=== PATIENT | female | born 1980 | race Caucasian/White ===

== ENCOUNTER 2018-05-04 14:56 | Emergency (ER) | END 2018-05-04 17:33 | disposition left against medical advice (07) ==

== ENCOUNTER 2018-05-23 10:37 | Emergency (ER) | END 2018-05-23 19:13 | disposition home or self-care (01) ==

== ENCOUNTER 2018-11-19 16:23 | Emergency (ER) | payer SELFPAY ==
[~2018-11-19] VITALS: Ht 157.5 cm; Wt 58.2 kg
[~2018-11-19 16:23] MED LIST: CIPR500T4 PO
[2018-11-19 16:56] VITALS: BP 138/87; PULSE 114; RESP 18; Ht 157.5 cm; Wt 58.2 kg
== END 2018-11-19 17:51 | disposition left against medical advice (07) ==
LOC: E/R 16:23
DX: Z53.21 Procedure and treatment not carried out due to patient leaving prior to being seen by health care provider (principal)

== ENCOUNTER 2018-12-07 08:25 | Emergency (ER) | payer OTHER ==
[~2018-12-07] VITALS: Wt 61.3 kg
--- NOTE | 2018-12-07 09:27 | ERD ---
ER Documentation Chief Complaint Chief Complaint suicidal attempt with approx 20 pills of kepra 1000mg stated, etoh positive HPI 38-year-old female history of seizure disorder on Keppra, underlying psychiatric issues and depression who presents to the emergency room complaining of suicidal ideation. The patient states that she took approximately 20 pills of her Keppra possibly at thousand milligrams tablets yesterday evening. She states that she took these medications trying to kill herself. Patient has suicidal ideation. She states that she has been drinking alcohol. She denies any other coingestions. She denies any chest pain shortness of breath. Police officers are placing the patient on hold ROS All systems reviewed and are negative except as per history of present illness. Medications Home Meds Reported Medications Sertraline Hcl* (Sertraline Hcl*) 50 Mg Tablet, 50 MG PO DAILY, #30 TAB 12/07/18 Levetiracetam* (Levetiracetam*) 1,000 Mg Tablet, 1000 MG PO BID, TAB 12/07/18 Discontinued Scripts Ciprofloxacin Hcl* (Ciprofloxacin Hcl*) 500 Mg Tablet, 500 MG PO BID for 7 Days, TAB Prov:BEBE YOU MD 05/23/18 Allergies Allergies: Coded Allergies: No Known Allergy (Unverified , 12/07/18) PMhx/Soc History of Surgery: No Anesthesia Reaction: No Hx Neurological Disorder: Yes (SEIZURE) Hx Respiratory Disorders: No Hx Cardiac Disorders: No Hx Psychiatric Problems: No (DENIES) Hx Miscellaneous Medical Probl: No Hx Alcohol Use: Yes Hx Substance Use: No Hx Tobacco Use: Yes Smoking Status: Current some day smoker FmHx Family History: No diabetes Physical Exam Vitals Vital Signs Date Temp Pulse Resp B/P (MAP) Pulse Ox O2 O2 Flow FiO2 Time Delivery Rate 12/07/18 102 17 105/73 100 Room Air 11:39 (84) 12/07/18 98.5 112 20 132/78 98 08:36 (96) Physical Exam General: Agitated, tearful, slightly intoxicated but directable Head: Normocephalic, atraumatic. Eyes: Pupils equally reactive, EOM intact ENT: Moist mucous membranes Neck: Supple, no lymphadenopathy Respiratory: Lungs clear bilaterally, no distress Cardiovascular: RRR, no murmurs, rubs, or gallops Abdominal: Soft, non-tender, non-distended, no peritoneal signs : Deferred MSK: No edema, no unilateral swelling, 5/5 strength Neurologic: Limited exam, intoxicated but moving all extremities Skin: No rash Psych: Suicidal ideation with plan Result Diagram: 12/07/1837 12/07/18 0837 Results 24 hrs Laboratory Tests Test 12/07/18 08:37 12/07/18 08:40 White Blood Count 6.9 10^3/ul Red Blood Count 4.30 10^6/ul Hemoglobin 13.6 g/dl Hematocrit 39.7 % Mean Corpuscular Volume 92.3 fl Mean Corpuscular Hemoglobin 31.6 pg Mean Corpuscular Hemoglobin Concent 34.3 g/dl Red Cell Distribution Width 12.9 % Platelet Count 250 10^3/UL Mean Platelet Volume 9.8 fl Immature Granulocytes % 0.300 % Neutrophils % 51.5 % Lymphocytes % 34.5 % Monocytes % 11.6 % Eosinophils % 1.2 % Basophils % 0.9 % Nucleated Red Blood Cells % 0.0 /100WBC Immature Granulocytes # 0.020 10^3/ul Neutrophils # 3.6 10^3/ul Lymphocytes # 2.4 10^3/ul Monocytes # 0.8 10^3/ul Eosinophils # 0.1 10^3/ul Basophils # 0.1 10^3/ul Nucleated Red Blood Cells # 0.0 10^3/ul Sodium Level 144 mmol/L Potassium Level 4.7 mmol/L Chloride Level 107 mmol/L Carbon Dioxide Level 26 mmol/L Anion Gap 11 Blood Urea Nitrogen 5 mg/dl Creatinine 0.68 mg/dl Est Glomerular Filtrat Rate mL/min > 60 mL/min Glucose Level 110 mg/dl Calcium Level 9.2 mg/dl Total Bilirubin 0.4 mg/dl Direct Bilirubin 0.00 mg/dl Indirect Bilirubin 0.4 mg/dl Aspartate Amino Transf (AST/SGOT) 34 IU/L Alanine Aminotransferase (ALT/SGPT) 17 IU/L Alkaline Phosphatase 52 IU/L Total Protein 8.1 g/dl Albumin 4.5 g/dl Globulin 3.60 g/dl Albumin/Globulin Ratio 1.25 Serum HCG, Qualitative NEGATIVE Salicylates Level < 1.0 mg/dl Acetaminophen Level < 10.0 ug/ml Ethyl Alcohol Level 269.0 mg/dl Urine Color STRAW Urine Clarity CLEAR Urine pH 6.0 Urine Specific [place] 1.010 Urine Ketones NEGATIVE mg/dL Urine Nitrite NEGATIVE mg/dL Urine Bilirubin NEGATIVE mg/dL Urine Urobilinogen NEGATIVE mg/dL Urine Leukocyte Esterase NEGATIVE Gwyn/ul Urine Hemoglobin NEGATIVE mg/dL Urine Glucose NEGATIVE mg/dL Urine Total Protein NEGATIVE mg/dl Urine Opiates Screen Negative Urine Barbiturates Negative Urine Amphetamines Screen Negative Urine Benzodiazepines Screen Negative Urine Cocaine Screen Negative Urine Cannabinoids Negative Procedures/MDM EKG, MONITORS, & DIAGNOSTIC IMAGING: EKG: I reviewed and interpreted a 12-lead EKG. Rhythm: Normal sinus rhythm ST Changes: No contiguous ST segment elevations T waves: No contiguous T wave inversions Impression: No evidence of acute cardiac ischemia LAB INTERPRETATION: I reviewed the laboratory testing and it shows elevated alcohol level MEDICAL DECISION MAKING: Patient presents with reported ingestion of 20 tablets of Keppra yesterday evening. Greater than 1 hour since ingestion. The patient has no signs or symptoms concerning for toxidrome. Patient is being placed on a 5150 hold by police officers for suicidal ideation and danger to self. Poison Control Center was notified. They recommend observation for 6 hours status post ingestion. The patient is now greater than 6 hours status post ingestion. Other laboratory testing will be initiated to rule out coingestions but low clinical concern for that process. Patient does not require physical or chemical restraints at this time. She has been given a verbal warning and has been redirected. Patient will need evaluation by psychiatric team. ER COURSE: * Alcohol level is elevated. The patient is resting comfortably. * At this point the patient is medically cleared for psychiatric evaluation and placement CONSULTATION: None DISPOSITION PLAN: Pending psychiatric evaluation and placement Patient will be endorsed oncoming provider. Departure Diagnosis: Primary Impression: Suicidal ideation Additional Impressions: Intentional drug overdose Encounter type: initial encounter Qualified Codes: T50.902A - Poisoning by unspecified drugs, medicaments and biological substances, intentional self- harm, initial encounter Acute alcohol intoxication Complication of substance-induced condition: uncomplicated Qualified Codes: F10.920 - Alcohol use, unspecified with intoxication, uncomplicated Condition: Stable DANI CORNEJO MD Dec 07, 2018 09:27
[2018-12-07] MEDS ORDERED: LEVE10006 PO (10:31)
[2018-12-07] MEDS ORDERED: SERT50TA6 PO (10:31)
--- NOTE | 2018-12-07 14:23 | PSY ---
Date/Time of Note Date/Time of Note DATE: 12/07/18 TIME: 14:20 Psychiatric Subjective Eval Consent Pt consented to telemedicine: Yes Subjective Evaluation Patient location: emergency Chief Complaint: suicidal attempt with approx 20 pills of kepra 1000mg stated, etoh positive History of present illness 38 yo female s/p intentional OD on Keppra 20 + pills in a SA. Pt was intoxicated on alcohol, BAL 69. Pt is uncooperative with the eval, initially refused to speak, agitated, pressured speech. She says she was suicidal because she does not have custody of her 4 kids and she has been trying to get . She is paranoid, irritable, she denies AH or VH. Refused to discuss her past psych hx. Past psychiatric history refused to answer Hospitalization: yes Medical history Problems Medical Problems: (1) Acute alcohol intoxication Status: Acute (2) Alcoholic intoxication Status: Acute (3) Dog bite Status: Acute (4) Intentional drug overdose Status: Acute (5) Laceration of vermilion border of upper lip Status: Acute (6) Patient left after triage Status: Acute (7) Suicidal ideation Status: Acute (8) Urinary tract infection Status: Acute Allergies: Coded Allergies: No Known Allergy (Unverified , 12/07/18) Substance Abuse Substance abuse history: Yes Prior substance abuse treatmen: Yes Social History Marital status: single Occupation/Halfway: unemployed disabled Psychiatric Objective Eval Review of Systems: Review of Systems: Not Applicable Physical Examination: Physical Examination: Not Applicable Mental Status Examination: Appearance: Disheveled Eye Contact: Fair Psychomotor Activity: Agitated Behavior: Hostile Speech: Pressured AFFECT: Libile Mood: Angry Though Process: Circumstantial Suicidal: Yes Homicidal: No On 72 hour hold: Yes Orientation: x3 Cognition: Alert Insight: Impared Judgement: Impared Laboratory Results Laboratory Tests Test 12/07/18 08:37 12/07/18 08:40 White Blood Count 6.9 10^3/ul Red Blood Count 4.30 10^6/ul Hemoglobin 13.6 g/dl Hematocrit 39.7 % Mean Corpuscular Volume 92.3 fl Mean Corpuscular Hemoglobin 31.6 pg Mean Corpuscular Hemoglobin Concent 34.3 g/dl Red Cell Distribution Width 12.9 % Platelet Count 250 10^3/UL Mean Platelet Volume 9.8 fl Immature Granulocytes % 0.300 % Neutrophils % 51.5 % Lymphocytes % 34.5 % Monocytes % 11.6 % Eosinophils % 1.2 % Basophils % 0.9 % Nucleated Red Blood Cells % 0.0 /100WBC Immature Granulocytes # 0.020 10^3/ul Neutrophils # 3.6 10^3/ul Lymphocytes # 2.4 10^3/ul Monocytes # 0.8 10^3/ul Eosinophils # 0.1 10^3/ul Basophils # 0.1 10^3/ul Nucleated Red Blood Cells # 0.0 10^3/ul Sodium Level 144 mmol/L Potassium Level 4.7 mmol/L Chloride Level 107 mmol/L Carbon Dioxide Level 26 mmol/L Anion Gap 11 Blood Urea Nitrogen 5 mg/dl Creatinine 0.68 mg/dl Est Glomerular Filtrat Rate mL/min > 60 mL/min Glucose Level 110 mg/dl Calcium Level 9.2 mg/dl Total Bilirubin 0.4 mg/dl Direct Bilirubin 0.00 mg/dl Indirect Bilirubin 0.4 mg/dl Aspartate Amino Transf (AST/SGOT) 34 IU/L Alanine Aminotransferase (ALT/SGPT) 17 IU/L Alkaline Phosphatase 52 IU/L Total Protein 8.1 g/dl Albumin 4.5 g/dl Globulin 3.60 g/dl Albumin/Globulin Ratio 1.25 Serum HCG, Qualitative NEGATIVE Salicylates Level < 1.0 mg/dl Acetaminophen Level < 10.0 ug/ml Ethyl Alcohol Level 269.0 mg/dl Urine Color STRAW Urine Clarity CLEAR Urine pH 6.0 Urine Specific [place] 1.010 Urine Ketones NEGATIVE mg/dL Urine Nitrite NEGATIVE mg/dL Urine Bilirubin NEGATIVE mg/dL Urine Urobilinogen NEGATIVE mg/dL Urine Leukocyte Esterase NEGATIVE Gwyn/ul Urine Hemoglobin NEGATIVE mg/dL Urine Glucose NEGATIVE mg/dL Urine Total Protein NEGATIVE mg/dl Urine Opiates Screen Negative Urine Barbiturates Negative Urine Amphetamines Screen Negative Urine Benzodiazepines Screen Negative Urine Cocaine Screen Negative Urine Cannabinoids Negative Assessment and Plan Assessment/Diagnosis Diagnosis ALCOHOL USE DISORDER. UNSPECIFIED MOOD DISORDER. Recommendation/Plan Medication Management ZYPREXA 10 MG PO QHS AND 5 MG POQAM. CIWA PROTOCOL Multiple antipsychotics: Yes Discharge Disposition: Psychiatric inpatient Legal Status: Continue involuntary hold FENG SLATER MD Dec 07, 2018 14:23
--- NOTE | 2018-12-07 19:25 | PSY ---
Date/Time of Note Date/Time of Note DATE: 12/07/18 TIME: 19:10 Psychiatric Subjective Eval Subjective Evaluation Patient location: emergency Chief Complaint: suicidal attempt with approx 20 pills of kepra 1000mg stated, etoh positive Reason for consult: OD History of present illness Patient already seen by Dr. Strange ~4 hours ago who felt patient was at sufficient risk to maintain on 5150 hold and psychiatrically admitted. Hospital staff state patient wanted another evaluation because she wanted to go home and wasn't suicidal. She stated she was "drunk and not in my right mind" and did not remember even talking to any police officers. She is frustrated with her family and stated they are not supportive and are "toxic" and only "point fingers" at her. She stated she was drunk and again "not in my right mind" and did not remember taking an overdose but then stated she did remember taking them because she was upset and would have thrown them up if she hadn't called for help. She stated now that she's sober she wants to take a shower and go to AA and stated she does not want to . Past psychiatric history No past MH history. No past admissions. Hospitalization: Suicidal Attempt(s) (Prior suicide when she was 14 "because a boy called me fat.") Family History None known Medical history Problems Medical Problems: (1) Acute alcohol intoxication Status: Acute (2) Alcoholic intoxication Status: Acute (3) Dog bite Status: Acute (4) Intentional drug overdose Status: Acute (5) Laceration of vermilion border of upper lip Status: Acute (6) Patient left after triage Status: Acute (7) Suicidal ideation Status: Acute (8) Urinary tract infection Status: Acute Allergies: Coded Allergies: No Known Allergy (Unverified , 12/07/18) Substance Abuse Substance abuse history: Yes Social History Marital status: single Level of education: Graduated HS, trained as APARTMENT MANAGER DPA/Conservatorship: No 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 Psychiatric Objective Eval Mental Status Examination: Appearance: Groomed Eye Contact: Fair Psychomotor Activity: Normal Behavior: Cooperative Speech: Clear AFFECT: Other (Tearful) Mood: Depressed Though Process: Linear Thought Content: Normal Suicidal: No Homicidal: No On 72 hour hold: Yes Orientation: x4 Laboratory Results Laboratory Tests Test 12/07/18 08:37 12/07/18 08:40 12/07/18 17:23 White Blood Count 6.9 10^3/ul Red Blood Count 4.30 10^6/ul Hemoglobin 13.6 g/dl Hematocrit 39.7 % Mean Corpuscular Volume 92.3 fl Mean Corpuscular Hemoglobin 31.6 pg Mean Corpuscular 34.3 g/dl Hemoglobin Concent Red Cell Distribution Width 12.9 % Platelet Count 250 10^3/UL Mean Platelet Volume 9.8 fl Immature Granulocytes % 0.300 % Neutrophils % 51.5 % Lymphocytes % 34.5 % Monocytes % 11.6 % Eosinophils % 1.2 % Basophils % 0.9 % Nucleated Red Blood Cells % 0.0 /100WBC Immature Granulocytes # 0.020 10^3/ul Neutrophils # 3.6 10^3/ul Lymphocytes # 2.4 10^3/ul Monocytes # 0.8 10^3/ul Eosinophils # 0.1 10^3/ul Basophils # 0.1 10^3/ul Nucleated Red Blood Cells # 0.0 10^3/ul Sodium Level 144 mmol/L Potassium Level 4.7 mmol/L Chloride Level 107 mmol/L Carbon Dioxide Level 26 mmol/L Anion Gap 11 Blood Urea Nitrogen 5 mg/dl Creatinine 0.68 mg/dl Est Glomerular Filtrat > 60 mL/min Rate mL/min Glucose Level 110 mg/dl Calcium Level 9.2 mg/dl Total Bilirubin 0.4 mg/dl Direct Bilirubin 0.00 mg/dl Indirect Bilirubin 0.4 mg/dl Aspartate Amino 34 IU/L Transf (AST/SGOT) Alanine 17 IU/L Aminotransferase (ALT/SGPT) Alkaline Phosphatase 52 IU/L Total Protein 8.1 g/dl Albumin 4.5 g/dl Globulin 3.60 g/dl Albumin/Globulin Ratio 1.25 Serum HCG, Qualitative NEGATIVE Salicylates Level < 1.0 mg/dl Acetaminophen Level < 10.0 ug/ml Ethyl Alcohol Level 269.0 mg/dl 30.0 mg/dl Urine Color STRAW Urine Clarity CLEAR Urine pH 6.0 Urine Specific [place] 1.010 Urine Ketones NEGATIVE mg/dL Urine Nitrite NEGATIVE mg/dL Urine Bilirubin NEGATIVE mg/dL Urine Urobilinogen NEGATIVE mg/dL Urine Leukocyte Esterase NEGATIVE Gwyn/ul Urine Hemoglobin NEGATIVE mg/dL Urine Glucose NEGATIVE mg/dL Urine Total Protein NEGATIVE mg/dl Urine Opiates Screen Negative Urine Barbiturates Negative Urine Amphetamines Screen Negative Urine Benzodiazepines Screen Negative Urine Cocaine Screen Negative Urine Cannabinoids Negative Assessment and Plan Assessment/Diagnosis Diagnosis Alcohol Use Disorder Unspecified Depressive Disorder (MDD vs Alcohol-Induced Depressive Disorder) Recommendation/Plan Multiple antipsychotics: No Discharge Disposition: Psychiatric inpatient Legal Status: Continue involuntary hold JUDD CAMEJO MD Dec 07, 2018 19:20
--- NOTE | 2018-12-08 05:18 | EN ---
Date/Time of Note Date/Time of Note DATE: 12/08/18 TIME: 05:17 ER Progress Note Psyche Observation Care: Currently awaiting psychiatric team evaluation. The patient is still an acute danger to themselves and incapable of caring for themselves. Repeat evaluations have shown consistent psychotic behavior and over the last 6hours the patient is currently pending placement. She has remained hemodynamically stable. MERCEDES LANGFORD MD Dec 08, 2018 05:18
[2018-12-08 14:15] VITALS: BP 115/78; PULSE 70; RESP 17
== END 2018-12-08 14:22 | disposition home or self-care (01) ==
LOC: E/R 08:25
DX: T42.6X2A Poisoning by other antiepileptic and sedative-hypnotic drugs, intentional self-harm, initial encounter (principal); F10.920 Alcohol use, unspecified with intoxication, uncomplicated; F17.210 Nicotine dependence, cigarettes, uncomplicated; R45.851 Suicidal ideations
CPT/HCPCS: 36415; 80053; 80307; 81003; 84703; 85025; 93005

== ENCOUNTER 2019-01-04 00:28 | Emergency (ER) | payer OTHER ==
[~2019-01-04] VITALS: Ht 157.5 cm; Wt 59.7 kg
[~2019-01-04 00:28] MED LIST changes: -CIPR500T4 PO; +LEVE10006 PO; +SERT50TA6 PO
[2019-01-04 00:30] VITALS: Ht 157.5 cm; Wt 59.7 kg
--- NOTE | 2019-01-04 02:42 | ERD ---
ER Documentation Chief Complaint Chief Complaint 5wks preg; spotting; etoh-states drank 1 pint of voldka HPI 38-year-old female AB 3 presenting with complaints of vaginal spotting for the past 3 to 4 days. She has a history of alcoholism and was drinking today. She has had mild lower abdominal cramping intermittently. She thinks she is as she took a test 2 weeks ago that was positive. Last menstrual period was about 4 weeks ago. No fevers, chills, nausea, vomiting. ROS All systems reviewed and are negative except as per history of present illness. Medications Home Meds Reported Medications Pnv95/Ferrous Fumarate/FA ( Vitamins Tablet) 1 Each Tablet, 1 TAB PO DAILY for 90 Days, #90 01/04/19 Sertraline Hcl* (Sertraline Hcl*) 50 Mg Tablet, 50 MG PO DAILY, #30 TAB 12/07/18 Levetiracetam* (Levetiracetam*) 1,000 Mg Tablet, 1000 MG PO BID, TAB 12/07/18 Allergies Allergies: Coded Allergies: No Known Allergy (Unverified , 01/04/19) PMhx/Soc History of Surgery: Yes ( x3) Anesthesia Reaction: No Hx Neurological Disorder: Yes (SEIZURE) Hx Respiratory Disorders: No Hx Cardiac Disorders: No Hx Psychiatric Problems: No (DENIES) Hx Miscellaneous Medical Probl: No Hx Alcohol Use: Yes Hx Substance Use: No Hx Tobacco Use: Yes FmHx Family History: No diabetes Physical Exam Vitals Vital Signs Date Temp Pulse Resp B/P (MAP) Pulse Ox O2 O2 Flow FiO2 Time Delivery Rate 01/04/19 94 18 97/65 (76) 96 Room Air 06:00 01/04/19 94 15 105/75 97 Room Air 05:30 (85) 01/04/19 87 16 97/70 (79) 100 Room Air 05:00 01/04/19 88 18 106/69 97 Room Air 04:30 (81) 01/04/19 91 16 99/74 (82) 97 Room Air 04:00 01/04/19 96 16 105/77 98 Room Air 03:00 (86) 01/04/19 98.8 80 19 111/57 100 Room Air 02:40 (75) 01/04/19 99.1 107 19 111/57 98 00:30 (75) Physical Exam Const: No acute distress. Seems somewhat intoxicated Head: Atraumatic Eyes: Normal Conjunctiva ENT: Normal External Ears, Nose and Mouth. Neck: Full range of motion. No meningismus. Resp: Clear to auscultation bilaterally Cardio: Regular rate and rhythm, no murmurs Abd: Soft, non tender, non distended. Normal bowel sounds Skin: No petechiae or rashes Back: No midline or flank tenderness Ext: No cyanosis, or edema Neur: Awake and alert Psych: Normal Mood and Affect Result Diagram: 01/04/19 0325 Results 24 hrs Laboratory Tests Test 01/04/19 02:55 01/04/19 03:25 01/04/19 05:15 01/04/19 05:37 POC Beta HCG, POSITIVE Qualitative White Blood 6.1 10^3/ul Count Red Blood Count 3.81 10^6/ul Hemoglobin 12.3 g/dl Hematocrit 36.2 % Mean Corpuscular 95.0 fl Volume Mean Corpuscular 32.3 pg Hemoglobin Mean Corpuscular 34.0 g/dl Hemoglobin [place] Red Cell 12.2 % Distribution Width Platelet Count 248 10^3/UL Mean Platelet 9.6 fl Volume Immature 0.300 % Granulocytes % Neutrophils % 45.0 % Lymphocytes % 44.3 % Monocytes % 8.3 % Eosinophils % 1.3 % Basophils % 0.8 % Nucleated Red 0.0 /100WBC Blood Cells % Immature 0.020 10^3/ul Granulocytes # Neutrophils # 2.8 10^3/ul Lymphocytes # 2.7 10^3/ul Monocytes # 0.5 10^3/ul Eosinophils # 0.1 10^3/ul Basophils # 0.1 10^3/ul Nucleated Red 0.0 10^3/ul Blood Cells # Beta HCG, 75729.0 mIU/ml Quantitative Urine Color STRAW Urine Clarity CLEAR Urine pH 5.0 Urine Specific 1.009 [place] Urine Ketones NEGATIVE mg/dL Urine Nitrite NEGATIVE mg/dL Urine Bilirubin NEGATIVE mg/dL Urine NEGATIVE mg/dL Urobilinogen Urine Leukocyte NEGATIVE Gwyn/ul Esterase Urine 1 /HPF Microscopic RBC Urine 1 /HPF Microscopic WBC Urine Bacteria FEW /HPF Urine Hemoglobin 2+ mg/dL Urine Glucose NEGATIVE mg/dL Urine Total NEGATIVE mg/dl Protein Bedside Urine pH 5.5 (LAB) Bedside Urine Negative Protein (LAB) Bedside Urine Negative Glucose (UA) Bedside Urine Negative Ketones (LAB) Bedside Urine 1+ Blood Bedside Urine Negative Nitrite (LAB) Bedside Urine Negative Leukocyte Estera se (L Procedures/MDM EMERGENT LABS AND DIAGNOSTIC STUDIES: Lab Results above were reviewed and interpreted by me. CBC: no anemia or evidence of infection UA: no evidence of infection HCG: Appropriately elevated Final radiologist read pending Ultrasound pelvis: Findings are consistent with normal IUP at 6 weeks Initial Nursing notes reviewed. Previous Medical Records requested via the Electronic Health Record. EMERGENCY DEPARTMENT COURSE / MEDICAL DECISION MAKING: Patient is presenting with vaginal spotting in her first trimester of . Ultrasound showed a normal live IUP. Discussed with patient threatened and what to look out for. Referral list for gynecology given. Return precautions discussed. Departure Diagnosis: Primary Impression: Spotting affecting in first trimester Additional Impression: Alcohol intoxication Complication of substance-induced condition: uncomplicated Qualified Codes: F10.920 - Alcohol use, unspecified with intoxication, uncomplicated Condition: Stable INGRID GARZA MD Jan 04, 2019 02:42
[2019-01-04] MEDS ORDERED: PREN1TAB13 PO (04:13)
[2019-01-04 06:00] VITALS: BP 97/65; PULSE 94; RESP 18
== END 2019-01-04 06:03 | disposition home or self-care (01) ==
LOC: E/R 00:28
DX: O26.851 Spotting complicating pregnancy, first trimester (principal); O99.311 Alcohol use complicating pregnancy, first trimester; F10.920 Alcohol use, unspecified with intoxication, uncomplicated; R40.2142 Coma scale, eyes open, spontaneous, at arrival to emergency department; R40.2252 Coma scale, best verbal response, oriented, at arrival to emergency department; R40.2362 Coma scale, best motor response, obeys commands, at arrival to emergency department; Z3A.01 Less than 8 weeks gestation of pregnancy; Z87.891 Personal history of nicotine dependence
CPT/HCPCS: 36415; 76801; 76817; 81001; 81025; 84702; 85025; 86900; 86901; Z7502; 81003